=== PATIENT | male | born 1995 | race Caucasian/White ===

== ENCOUNTER 2017-08-31 17:25 | Emergency (ER) | payer SELFPAY ==
[2017-08-31 17:38] VITALS: BP 142/71
[2017-08-31] MEDS ORDERED: IBUPROFEN 800 MG TABLET PO ONE (17:57)
--- NOTE | 2017-08-31 18:03 | ER Document Report ---
ED Oral Problem - General Chief Complaint: Toothache Stated Complaint: MOUTH PAIN Time Seen by Provider: 08/31/17 17:49 Mode of Arrival: Ambulatory Information source: Parent Notes: Patient is a 22 year old male who presents to the ER today for tooth pain all over his mouth 1 year. Patient tells me that it hurts sometimes when he is not eating and sometimes when he eats. Patient has not seen a dentist for this. Mom states that they called her insurance company and the insurance company told them to go to the emergency department. Patient says that sometimes it "tastes funny" when he chews on the left side but denies any swelling or drainage that he is noticed, fevers or chills, history of any abscesses. TRAVEL OUTSIDE OF THE [place] IN LAST 30 DAYS: No - Related Data Allergies/Adverse Reactions: No Known Allergies Allergy (Unverified 08/31/17 17:27) Past Medical History - General Information source: Patient, Parent - Social History Smoking Status: Never Smoker Family History: Reviewed & Not Pertinent Review of Systems - Review of Systems Constitutional: No symptoms reported EENT: See HPI Cardiovascular: No symptoms reported Respiratory: No symptoms reported Gastrointestinal: No symptoms reported Genitourinary: No symptoms reported Male Genitourinary: No symptoms reported Musculoskeletal: No symptoms reported Skin: No symptoms reported Hematologic/Lymphatic: No symptoms reported Neurological/Psychological: No symptoms reported Physical Exam - Vital signs Vitals: Temp Pulse BP Pulse Ox 98.6 F 84 142/71 H 97 08/31/17 17:37 08/31/17 17:37 08/31/17 17:37 08/31/17 17:37 - Notes Notes: PHYSICAL EXAMINATION: GENERAL: Well-appearing and in no acute distress. HEAD: Atraumatic, normocephalic. EYES: Pupils equal round and reactive to light, extraocular movements intact, sclera anicteric, conjunctiva are normal. ENT: ear canals without erythema or foreign body, TMs pearly galan with good bony landmarks, nares patent, oropharynx clear without exudates. Moist mucous membranes. poor dentition, no edema or induration NECK: Normal range of motion, supple without lymphadenopathy LUNGS: CTAB and equal. No wheezes rales or rhonchi. HEART: Regular rate and rhythm without murmurs EXTREMITIES: Normal range of motion, no pitting edema. No cyanosis. NEUROLOGICAL: Cranial nerves grossly intact. Normal sensory/motor exams. PSYCH: Normal mood, normal affect. SKIN: Warm, Dry, normal turgor, no rashes or lesions noted Course - Re-evaluation Re-evalutation: 08/31/17 18:01 pt smiling telling me about his dental pain, nothing obvious on exam, pt needs to see a dentist. i will prescribe abx and follow up with dentist in 1 week when they're back home from vacation. - Vital Signs Vital signs: Temp Pulse Resp BP Pulse Ox 98.6 F 84 142/71 H 97 08/31/17 17:37 08/31/17 17:37 08/31/17 17:37 08/31/17 17:37 Discharge - Discharge Clinical Impression: Chronic dental pain Condition: Stable Disposition: HOME, SELF-CARE Additional Instructions: Return immediately for any new or worsening symptoms. Follow up with dentist, call tomorrow to make followup appointment. Prescriptions: Amoxicillin 500 mg PO BID #20 capsule Ibuprofen [Motrin 800 mg Tablet] 800 mg PO Q8H PRN #30 tab PRN Reason:
== END 2017-08-31 18:10 | disposition home or self-care (01) ==
LOC: ER 17:25
DX: G89.29 Other chronic pain (principal); K08.89 Other specified disorders of teeth and supporting structures
CPT/HCPCS: 99282